=== PATIENT | male | born 1970 ===

== ENCOUNTER 2021-01-28 08:07 | Day surgery (SDC) | payer BC ==
[~2021-01-28 08:07] MED LIST: Lactated Ringers 1,000 ML IV SCH; Lidocaine 2% 5 ML SDV ONE; Ondansetron 4 MG/2 ML SDV ONE; Sodium Chloride 0.9% 10 ML SDV IV PRN; Sodium Chloride 0.9% 10 ML Syringe FLUSH PRN; Sodium Chloride 0.9% 2.5 ML Syringe FLUSH PRN; propofoL 50 ML ONE
--- NOTE | 2021-01-28 08:37 | PCM.PREANE ---
Preanesthetic Assessment - Anesthesia/Transfusion/Family Hx Anesthesia History: Prior Anesthesia Without Reaction Family History of Anesthesia Reaction: No Transfusion History: No Prior Transfusion(s) - Review of Systems General: No Symptoms Pulmonary: No Symptoms Cardiovascular: No Symptoms Gastrointestinal: No Symptoms Neurological: No Symptoms Other: Reports: None - Physical Assessment NPO Status Date: 01/28/21 NPO Status Time: 00:00 Height: 5 ft 11 in Weight: 233 lb ASA Class: 2 Mental Status: Alert & Oriented x3 Airway Class: Mallampati = 2 Dentition: Reports: Implants Thyro-Mental Finger Breadths: 4 Mouth Opening Finger Breadths: 4 ROM/Head Extension: Full Lungs: Clear to Auscultation, Normal Respiratory Effort Cardiovascular: Regular Rate, Regular Rhythm - Allergies Allergies/Adverse Reactions: Allergies Allergy/AdvReac Type Severity Reaction Status Date / Time No Known Allergies Allergy Verified 01/20/21 07:40 - Acknowledgements Anesthesia Type Planned: General Anesthesia Pt an Appropriate Candidate for the Planned Anesthesia: Yes Alternatives and Risks of Anesthesia Discussed w Pt/Guardian: Yes Pt/Guardian Understands and Agrees with Anesthesia Plan: Yes PreAnesthesia Questionnaire HEENT History: Reports: Other (See Below) Other HEENT History: wears glasses, dental implant-right front tooth Cardiovascular History: Reports: High Cholesterol, Hypertension Respiratory History: Reports: None Gastrointestinal History: Reports: Hemorrhoids Genitourinary History: Reports: None Musculoskeletal History: Reports: Fracture Other Musculoskeletal History: hx fx collarbone Neurological History: Other Neuro History: head injury as a child Psychiatric History: Reports: None Endocrine/Metabolic History: Reports: Obesity/BMI 30+ Hematologic History: Reports: None Immunologic History: Reports: None Oncologic (Cancer) History: Reports: None Dermatologic History: Reports: None - Past Surgical History Head Surgeries/Procedures: Reports: None HEENT Surgical History: Reports: None Cardiovascular Surgical History: Reports: None Respiratory Surgical History: Reports: None GI Surgical History: Reports: Hernia, Inguinal Male Surgical History: Reports: None Endocrine Surgical History: Reports: None Neurological Surgical History: Reports: None Musculoskeletal Surgical History: Reports: None Oncologic Surgical History: Reports: None Dermatological Surgical History: Reports: None - SUBSTANCE USE Tobacco Use Within Last Twelve Months: Smokeless Tobacco - HOME MEDS Home Medications: Home Meds Losartan Potassium 50 mg PO DAILY 01/20/21 [History] Multivitamin 1 tab PO DAILY 01/20/21 [History] Rosuvastatin Calcium 10 mg PO DAILY 01/20/21 [History] lidocaine HCL [Lidocaine HCl] 1 applic RECTAL ASDIRECTED 01/20/21 [History] - CURRENT (IN HOUSE) MEDS Current Meds: Current Medications Lactated Ringer's (Ringers, Lactated) 1,000 mls @ 125 mls/hr IV ASDIRECTED KAIN Last Admin: 01/28/21 08:23 Dose: 125 mls/hr Documented by: Sodium Chloride (Sodium Chloride 0.9% 10 Ml Syringe) 10 ml FLUSH ASDIRECTED PRN PRN Reason: Keep Vein Open Sodium Chloride (Sodium Chloride 0.9% 2.5 Ml Syringe) 2.5 ml FLUSH ASDIRECTED PRN PRN Reason: Keep Vein Open Sodium Chloride (Sodium Chloride 0.9% 10 Ml Syringe) 10 ml FLUSH ASDIRECTED PRN PRN Reason: Keep Vein Open Sodium Chloride (Sodium Chloride 0.9% 2.5 Ml Syringe) 2.5 ml FLUSH ASDIRECTED PRN PRN Reason: Keep Vein Open Sodium Chloride (Sodium Chloride 0.9% 10 Ml Sdv) 10 ml IV ASDIRECTED PRN PRN Reason: IV Use Discontinued Medications Propofol (Diprivan 50 Ml) Confirm Administered Dose 50 mls @ as directed .ROUTE .STK-MED ONE Stop: 01/28/21 07:15 Lidocaine (Lidocaine 2% 5 Ml Sdv) Confirm Administered Dose 5 ml .ROUTE .STK-MED ONE Stop: 01/28/21 07:06 Ondansetron HCl (Ondansetron 4 Mg/2 Ml Sdv) Confirm Administered Dose 4 mg .ROUTE .STK-MED ONE Stop: 01/28/21 07:06
[2021-01-28 09:51] VITALS: BP 96/52; PULSE 54
--- NOTE | 2021-01-28 09:52 | PCM48HPAN ---
Post Anesthesia Note - EVALUATION WITHIN 48HRS OF ANESTHETIC Vital Signs in Normal Range: Yes Patient Participated in Evaluation: Yes Respiratory Function Stable: Yes Airway Patent: Yes Cardiovascular Function Stable: Yes Hydration Status Stable: Yes Pain Control Satisfactory: Yes Nausea and Vomiting Control Satisfactory: Yes Mental Status Recovered: Yes Vital Signs: Last Vital Signs Temp 96.8 F L 01/28/21 09:45 Pulse 54 L 01/28/21 09:45 Resp 14 01/28/21 09:45 BP 96/52 L 01/28/21 09:45 Pulse Ox 94 L 01/28/21 09:45
--- NOTE | 2021-01-28 09:52 | PCM.POSTAN ---
POST ANESTHESIA ASSESSMENT - MENTAL STATUS Mental Status: Alert, Oriented - VITAL SIGNS Vital Signs: Last Vital Signs Temp 96.8 F L 01/28/21 09:45 Pulse 54 L 01/28/21 09:45 Resp 14 01/28/21 09:45 BP 96/52 L 01/28/21 09:45 Pulse Ox 94 L 01/28/21 09:45 - RESPIRATORY Respiratory Status: Respiratory Rate WNL, Airway Patent, O2 Saturation Stable - CARDIOVASCULAR CV Status: Pulse Rate WNL, Blood Pressure Stable - GASTROINTESTINAL GI Status: No Symptoms - POST OP HYDRATION Hydration Status: Adequate & Stable
--- NOTE | 2021-01-28 10:19 | PCM.OPNOTE ---
- General Post-Op/Procedure Note Date of Surgery/Procedure: 01/28/21 Operative Procedure(s): Screening colonoscopy Findings: Left lateral prolapsed hemorrhoid, rectal ulcer at base of hemorrhoid, ascending colon polyp x 3, transverse colon polyp, diverticulosis throughout distal half of colon Pre Op Diagnosis: Screening colonoscopy Post-Op Diagnosis: Rectal ulcer, hemorrhoid, ascending colon polyp x 3, transverse colon polyp, diverticulosis Anesthesia Technique: [facility] [place] Primary Surgeon: Gloria Burrows Condition: Good Free Text/Narrative:: Intake & Output 01/27/21 01/28/21 01/28/21 22:59 06:59 14:59 Intake Total 1200 Balance 1200
--- NOTE | 2021-01-28 11:15 | PCM.OPNOTE ---
- General Post-Op/Procedure Note Date of Surgery/Procedure: 01/28/21 Operative Procedure(s): Screening colonoscopy Findings: Diverticulosis of the distal half of the colon, rectal ulcer and hemorrhoid left lateral, ascending colon polyp x 3, transverse colon polyp Pre Op Diagnosis: Screening colonoscopy Post-Op Diagnosis: Rectal ulcer, hemorrhoid, diverticulosis, transverse colon polyp, ascending colon polyp x 3 Anesthesia Technique: MAC Primary Surgeon: Gloria Burrows Condition: Good Free Text/Narrative:: Intake & Output 01/27/21 01/28/21 01/28/21 22:59 06:59 14:59 Intake Total 1200 Balance 1200
--- NOTE | 2021-01-28 13:20 | OR ---
SURGEON: GLORIA BURROWS MD DATE OF PROCEDURE: 01/28/2021 PREOPERATIVE DIAGNOSIS: Screening colonoscopy. POSTOPERATIVE DIAGNOSES: 1. Hemorrhoids. 2. Transverse colon polyp. 3. Diverticulosis. 4. Ascending colon polyp x3. 5. Left lateral rectal ulcer. PROCEDURE PERFORMED: Screening colonoscopy. PRIMARY SURGEON: Gloria Burrows MD ANESTHESIA: MAC. INSTRUMENT USED: Olympus colonoscope. EXTENT OF EXAM: To the cecum. PREPARATION: Good. LIMITATIONS: None. INDICATIONS FOR EXAMINATION: The patient is a 50-year-old male who presents for screening colonoscopy. On questioning, the patient notes some intermittent bright red bleeding per rectum, which he attributes to a hemorrhoid. I explained the colonoscopy procedure. I explained the expected perioperative course and the risks. He verbalized understanding and wishes to proceed. PROCEDURE IN DETAIL: The patient was brought to the endoscopy suite and placed in a left lateral decubitus position. A time-out was completed verifying the patient's name, age, date of , allergies, and procedure to be performed. Monitored anesthesia care was induced and continuous oxygen was provided via nasal cannula throughout the procedure. After adequate sedation was achieved, a digital rectal exam was performed. The patient was noted to have a prolapsed left lateral hemorrhoid. A well-lubricated colonoscope was inserted to the rectum and advanced under direct visualization to the level of the cecum. The cecum was identified by both visual and anatomic landmarks. A photograph was taken of the cecal cap; however, I was unable to retroflex the scope within the cecum due to looping of the scope more proximally. The scope was then fully withdrawn while examining the color, texture, anatomy, and integrity of the mucosa from the cecum to the anal canal. The patient had 3 polyps within the ascending colon. The ascending colon polyp #1 and 2 were small and sessile. These were located in the mid body of the ascending colon. They were removed in piecemeal fashion using a cold biopsy forceps. There was a hepatic flexure in the distal ascending colon. The patient had a large pedunculated polyp. This was removed using a hot snare. It was labeled as ascending colon polyp #3 and sent to Pathology. The patient had a small sessile polyp within the transverse colon. This was removed in piecemeal fashion using a cold biopsy forceps. The patient was noted to have diverticulosis in the distal half of his colon. The scope was brought into the rectum and retroflexed to allow visualization of the anal canal opening. At the base of the left lateral hemorrhoid, the patient was noted to have an internal rectal ulcer. Due to the manipulation of the scope, it was slightly bleeding. Biopsies were taken of this and sent to Pathology, labeled as rectal ulcer biopsy to determine whether this is inflammatory or another pathologic process. The area was hemostatic at the end of my biopsies. The scope was then straightened out and fully withdrawn. The cecum to anus time was 24 minutes. The patient tolerated the procedure well and was transferred to the PACU in stable condition. ENDOSCOPIC DIAGNOSES: 1. Hemorrhoids. 2. Transverse colon polyp. 3. Diverticulosis. 4. Ascending colon polyp x3. 5. Left lateral rectal ulcer. RECOMMENDATIONS: Follow up in clinic in 2 weeks. SANDY ONTIVEROS /[id number]
== END 2021-01-28 09:53 | disposition home or self-care (01) ==
LOC: MW.SDS 08:07
PROVIDERS: ATTEND Surgery
DX: Z12.11 Encounter for screening for malignant neoplasm of colon (principal); D12.2 Benign neoplasm of ascending colon; K57.30 Diverticulosis of large intestine without perforation or abscess without bleeding; K62.6 Ulcer of anus and rectum; K64.4 Residual hemorrhoidal skin tags; I10 Essential (primary) hypertension; E78.00 Pure hypercholesterolemia, unspecified; F17.220 Nicotine dependence, chewing tobacco, uncomplicated; E66.9 Obesity, unspecified; Z68.32 Body mass index [BMI] 32.0-32.9, adult; Z79.899 Other long term (current) drug therapy
CPT/HCPCS: 45380; 45385; 88305; J2405; J2704; J7120; 00812